=== PATIENT | male | born 1965 | race African-American/Black ===

== ENCOUNTER 2016-10-31 21:21 | Emergency (ER) | payer MEDICARE, MEDICAID ==
[~2016-10-31] VITALS: Ht 182.9 cm; Wt 72.6 kg
[2016-10-31 21:52] LABS: BASOPHILS # (AUTO) 0.1 /CMM (0.0-0.2); BASOPHILS % (AUTO) 0.9 % (0.0-2.0); DIFF TOTAL % 100 %; EOSINOPHILS # (AUTO) 0.3 /CMM (0.0-0.7); EOSINOPHILS % (AUTO) 4.2 % (0.0-6.0); HEMATOCRIT 47 % (39-51); HEMOGLOBIN 15.7 g/dL (13.5-17.5); LYMPHOCYTES # (AUTO) 3.9 /CMM (0.8-4.8); LYMPHOCYTES % (AUTO) 57.3 % (20.0-44.0); MEAN CORPUSCULAR HEMOGLOBIN 32 PG (26.0-33.0); MEAN CORPUSCULAR HGB CONC 33 g/dl (31.0-36.0); MEAN CORPUSCULAR VOLUME 96 fL (80-96); MONOCYTES # (AUTO) 0.6 /CMM (0.1-1.30); MONOCYTES % (AUTO) 8.8 % (2.0-12.0); NEUTROPHILS % (AUTO) 28.8 % (43.0-81.0); PLATELET COUNT (AUTO) 180 /CMM (150-450); WHITE BLOOD COUNT (AUTO) 6.9 K/uL (4.3-11.0)
[2016-10-31 22:01] LABS: CALCIUM, SERUM 8.8 mg/dL (8.5-10.1); CREATININE 0.9 mg/dL (0.6-1.3); POTASSIUM 3.6 mmol/L (3.5-5.1)
[2016-10-31 22:07] LABS: CANNABINOID, URINE POSITIVE (NEGATIVE); PHENCYCLIDINE SCREEN,URINE NEGATIVE (NEGATIVE)
[2016-11-01] MEDS ORDERED: OLANZAPINE 5 MG TABLET ONE (04:07)
[2016-11-01] MEDS ORDERED: OLANZAPINE 5 MG TABLET PO ONE (04:30)
[2016-11-01 06:00] VITALS: BP 128/70
== END 2016-11-01 06:00 | disposition home or self-care (01) ==
LOC: ER 21:21
DX: F20.9 Schizophrenia, unspecified (principal); F29 Unspecified psychosis not due to a substance or known physiological condition; F30.9 Manic episode, unspecified; F41.9 Anxiety disorder, unspecified; F17.200 Nicotine dependence, unspecified, uncomplicated
CPT/HCPCS: 36415; 71010; 80048; 80305; 85025; 99285; A4606; G0480; Z7610